=== PATIENT | female | born 1985 | race Caucasian/White ===

== ENCOUNTER 2017-07-21 12:53 | Inpatient (IN) | payer BC ==
[2017-07-21] MEDS ORDERED: Sodium Chloride 0.9% 10 ML Syringe FLUSH PRN (13:58)
[2017-07-21] MEDS ORDERED: Ampicillin 2 GM in Sodium Chloride 0.9% 100 ML IV ONE (14:05)
[2017-07-21] MEDS: Lactated Ringers 1,000 ML IV SCH ×2 (14:40→20:35)
--- NOTE | 2017-07-21 17:43 | PCM.LDHP ---
L&D History of Present Illness - General Date of Service: 07/21/17 Admit Problem/Dx: Patient Status Order with Admit Dx/Problem 07/21/17 13:59 Patient Status [ADT] Routine Admission Diagnosis/Problem Admission Diagnosis/Problem Labor established Source of Information: Patient History Limitations: Reports: No Limitations - History of Present Illness Introduction:: 32 year old at 40w3d had SROM clear fluid at 0230. No contractions yet. Declining pitocin. care with myself complicated by 1) prior s/p VBACx1 desires TOLAC 2) GBS positive - Related Data Allergies/Adverse Reactions: Allergies Allergy/AdvReac Type Severity Reaction Status Date / Time No Known Allergies Allergy Verified 07/11/14 19:23 Past Medical History - Past Health History Medical/Surgical History: Denies Medical/Surgical History Social & Family History - Tobacco Use Smoking Status *Q: Never Smoker Second Hand Smoke Exposure: No - Caffeine Use Caffeine Use: Reports: Coffee - Recreational Drug Use Recreational Drug Use: No H&P Review of Systems - Review of Systems: Review Of Systems: See Below General: Reports: No Symptoms HEENT: Reports: No Symptoms Pulmonary: Reports: No Symptoms Cardiovascular: Reports: No Symptoms Gastrointestinal: Reports: No Symptoms Genitourinary: Reports: No Symptoms Musculoskeletal: Reports: No Symptoms Skin: Reports: No Symptoms Psychiatric: Reports: No Symptoms Neurological: Reports: No Symptoms Hematologic/Lymphatic: Reports: No Symptoms Immunologic: Reports: No Symptoms L&D Exam - Exam Exam: See Below - Vital Signs Vital Signs: Last Vital Signs Temp 36.4 C 07/21/17 13:59 Pulse 81 07/21/17 13:59 Resp 18 07/21/17 13:59 BP 118/72 07/21/17 13:59 Pulse Ox 95 07/21/17 13:59 Weight: 198 kg - OB Specific Contraction Intensity: Moderate Movement: Active Heart Rate (FHR) Variability: Moderate (6-25 bmp) Presentation: Vertex - Roberts Score Roberts Score Cervix Position: Midposition Roberts Score Consistency: Medium Roberts Score Effacement: 51-70% Roberts Score Dilation: 1-2 cm Roberts Score 's Station: -2 Roberts Score Total: 6 - Exam General: Alert, Oriented HEENT: PERRLA, Conjunctiva Clear, EACs Clear, EOMI, Hearing Intact, Mucosa Moist & [place], Nares Patent, Normal Nasal Septum, Posterior Pharynx Clear, TMs Clear Neck: Supple, Trachea Midline Lungs: Clear to Auscultation, Normal Respiratory Effort Cardiovascular: Regular Rate, Regular Rhythm GI/Abdominal Exam: Normal Bowel Sounds, Soft, Non-Tender, No Organomegaly, No Distention, No Abnormal Bruit, No Mass, Pelvis Stable Back Exam: Normal Inspection, Full Range of Motion Extremities: Normal Inspection, Normal Range of Motion, Non-Tender, No Pedal Edema, Normal Capillary Refill Skin: Warm, Dry, Intact Neurological: Cranial Nerves Intact, Reflexes Equal Bilateral Psychiatric: Alert, Normal Affect, Normal Mood - Patient Data Lab Results Last 24 hrs: Laboratory Results - last 24 hr 07/21/17 07/21/17 Range/Units 14:21 14:21 WBC 8.21 (3.98-10.04) K/mm3 RBC 4.02 (3.98-5.22) M/mm3 Hgb 12.5 (11.2-15.7) gm/L Hct 36.2 (34.1-44.9) % MCV 90.0 (79.4-94.8) fl MCH 31.1 (25.6-32.2) pg MCHC 34.5 (32.2-35.5) g/dl RDW Std Deviation 42.5 (36.4-46.3) fL Plt Count 198 (182-369) K/mm3 MPV 9.8 (9.4-12.3) fl Neut % (Auto) 71.2 H (34.0-71.1) % Lymph % (Auto) 21.7 (19.3-51.7) % [place] % (Auto) 6.3 (4.7-12.5) % Eos % (Auto) 0.4 L (0.7-5.8) Baso % (Auto) 0.2 (0.1-1.2) % Neut # (Auto) 5.84 (1.56-6.13) K/mm3 Lymph # (Auto) 1.78 (1.18-3.74) K/mm3 [place] # (Auto) 0.52 H (0.24-0.36) K/mm3 Eos # (Auto) 0.03 L (0.04-0.36) K/mm3 Baso # (Auto) 0.02 (0.01-0.08) K/mm3 Blood Type B POSITIVE Gel Antibody Screen Negative Result Diagrams: 07/21/17 14:21 Problem List Initiated/Reviewed/Updated: Yes Orders Last 24hrs: Active Orders 24 hr Category Date Time Status Patient Status [ADT] Routine ADT 07/21/17 13:59 Active Activity as Tolerated [RC] PFP Care 07/21/17 13:59 Active Communication Order [RC] ASDIRECTED Care 07/21/17 13:59 Active Heart Tones [RC] ASDIRECTED Care 07/21/17 14:00 Active Notify Provider [RC] PFP Care 07/21/17 13:59 Active Notify Provider [RC] PRN Care 07/21/17 13:59 Active Peripheral IV Care [RC] . DIRECTED Care 07/21/17 14:00 Active Vital Signs [RC] PER UNIT ROUTINE Care 07/21/17 13:59 Active Regular Diet [DIET] Diet 07/21/17 Dinner Active Ampicillin 1 gm Med 07/21/17 18:30 Active Sodium Chloride 0.9% [Normal Saline] 100 ml IV Q4H Lactated Ringers [Ringers, Lactated] 1,000 ml Med 07/21/17 14:00 Active IV ASDIRECTED Sodium Chloride 0.9% [Saline Flush] Med 07/21/17 13:58 Active 10 ml FLUSH ASDIRECTED PRN Electronic Heart Tones Ext w TOCO [WOMSER] Oth 07/21/17 13:59 Ordered Routine Electronic Heart Tones Internal [WOMSER] Per Unit Oth 07/21/17 13:59 Ordered Routine Peripheral IV Insertion Adult [OM.PC] Routine Oth 07/21/17 13:59 Ordered Resuscitation Status Routine Resus Stat 07/21/17 13:58 Ordered Medication Orders Lactated Ringer's (Ringers, Lactated) 1,000 mls @ 100 mls/hr IV ASDIRECTED MARY Last Admin: 07/21/17 14:40 Dose: 100 mls/hr Ampicillin Sodium 1 gm/ Sodium (Chloride) 100 mls @ 200 mls/hr IV Q4H MARY Sodium Chloride (Saline Flush) 10 ml FLUSH ASDIRECTED PRN PRN Reason: Keep Vein Open Assessment/Plan Comment:: 32 year old here with PROM at 40w3. Refuses pitocin. Extensive counselling regarding risk of chorioamnionitis. Patient without contractions or cervical change. Discussed general risk of TOLAC and 1/100 risk of rupture and risk of chorioamniotis.
[2017-07-21] MEDS: Ampicillin 1 GM in Sodium Chloride 0.9% 100 ML IV SCH (18:23)
[2017-07-21] MEDS ORDERED: Acetaminophen 325 MG Tab PO PRN ×2 (20:07→23:00)
[2017-07-21] MEDS ORDERED: HYDROmorphone 0.5 MG/0.5 ML Syringe IVPUSH ONE (21:11)
[2017-07-21] MEDS ORDERED: Lidocaine 1% 50 ML MDV ONE (22:01)
--- NOTE | 2017-07-21 22:58 | PCM.DEL ---
L & D Note - General Info Date of Service: 07/21/17 Mother's Due Date: 07/18/17 - Delivery Note Labor: Spontaneous Delivery Outcome: Livebirth Infant Delivery Method: Spontaneous Vaginal Delivery-Single Presentation: Left Occiput Anterior (ALVINO) Nuchal Cord: None Anesthesia Type: Local Local Anesthetic Volume: Other (10 cc) Amniotic Fluid Description: Clear Episiotomy Type: None Laceration: 2nd Degree, Perineal (Midline) Suture type: Vicryl Suture size: 3-0 Placenta: Intact, Spontaneous Cord: 3 Vessels Estimated Blood Loss: 300 Resuscitation Needed: No : Bulb Syringe Provider: Richard Cristina Score 1 min: 8 Score 5 min: 9 Second Stage Interventions: Reports: Pushing, Knee Chest Position Delivery Comments (Free Text/Narrative):: Stage I: Marnie Dubon was admitted for spontaneous rupture of membranes in the setting of history of section positive for GBS and desires trial of labor after . On admission her cervix was dilated to 2 cm. She was GBS positive and was started on ampicillin for prophylaxis. She had premature rupture membranes at term with minimal contractions that occurred while she was at home at approximately 2:15 AM on 07/21/2017. She was advised to have augmentation of labor with Pitocin but patient declined. She was counseled on the risks and benefits of augmentation and she continued to decline. She performed nipple stimulation for augmentation of her labor. At approximately 7: 30 PM she reported that she was having increased amounts of contractions and increased contraction pain. She progressed to complete and pushing over the course of approximately one hour. Stage II: On 07/21/2017 she had a normal vaginal delivery after of a live female at 2139. Apgars of 8 & 9. Weight of 3260 g (7 lbs 3 oz). Length of 21 inches. There was no nuchal cord. was delivered in ALVINO position. The cord was doubly clamped and cut by father of baby. Infant was placed on mother's abdomen. Stage III: She had a spontaneous delivery of an intact placenta in Susan presentation. Three vessel cord. She was given pitocin and fundal massage. She had a midline second-degree laceration laceration that was repaired with 3-0 Vicryl. Mom and baby were stable to recovery. EBL of 300 mL. Remy Cooper MD 11:05 PM 07/21/2017 - Patient Data Vitals - Most Recent: Last Vital Signs Temp 36.4 C 07/21/17 13:59 Pulse 81 07/21/17 13:59 Resp 18 07/21/17 13:59 BP 118/72 07/21/17 13:59 Pulse Ox 95 07/21/17 13:59 Weight - Most Recent: 198 kg I&O - Last 24 Hours: Intake & Output 07/21/17 07/21/17 07/21/17 06:59 14:59 22:59 Intake Total 120 Balance 120 Lab Results Last 24 Hours: Laboratory Results - last 24 hr 07/21/17 07/21/17 Range/Units 14:21 14:21 WBC 8.21 (3.98-10.04) K/mm3 RBC 4.02 (3.98-5.22) M/mm3 Hgb 12.5 (11.2-15.7) gm/L Hct 36.2 (34.1-44.9) % MCV 90.0 (79.4-94.8) fl MCH 31.1 (25.6-32.2) pg MCHC 34.5 (32.2-35.5) g/dl RDW Std Deviation 42.5 (36.4-46.3) fL Plt Count 198 (182-369) K/mm3 MPV 9.8 (9.4-12.3) fl Neut % (Auto) 71.2 H (34.0-71.1) % Lymph % (Auto) 21.7 (19.3-51.7) % [place] % (Auto) 6.3 (4.7-12.5) % Eos % (Auto) 0.4 L (0.7-5.8) Baso % (Auto) 0.2 (0.1-1.2) % Neut # (Auto) 5.84 (1.56-6.13) K/mm3 Lymph # (Auto) 1.78 (1.18-3.74) K/mm3 [place] # (Auto) 0.52 H (0.24-0.36) K/mm3 Eos # (Auto) 0.03 L (0.04-0.36) K/mm3 Baso # (Auto) 0.02 (0.01-0.08) K/mm3 Blood Type B POSITIVE Gel Antibody Screen Negative Med Orders - Current: Current Medications Acetaminophen (Tylenol) 650 mg PO Q6H PRN PRN Reason: Pain (moderate 4-6) Last Admin: 07/21/17 20:21 Dose: 650 mg Lactated Ringer's (Ringers, Lactated) 1,000 mls @ 100 mls/hr IV ASDIRECTED MARY Last Admin: 07/21/17 20:35 Dose: 100 mls/hr Ampicillin Sodium 1 gm/ Sodium (Chloride) 100 mls @ 200 mls/hr IV Q4H [facility] Last Admin: 07/21/17 18:23 Dose: 200 mls/hr Sodium Chloride (Saline Flush) 10 ml FLUSH ASDIRECTED PRN PRN Reason: Keep Vein Open Discontinued Medications Hydromorphone HCl (Dilaudid) 0.5 mg IVPUSH ONETIME ONE Stop: 07/21/17 21:12 Last Admin: 07/21/17 21:15 Dose: 0.5 mg Ampicillin Sodium 2 gm/ Sodium (Chloride) 100 mls @ 200 mls/hr IV ONETIME ONE Stop: 07/21/17 14:34 Last Admin: 07/21/17 14:40 Dose: 200 mls/hr Lidocaine HCl (Xylocaine 1%) Confirm Administered Dose 50 ml .ROUTE .STK-MED ONE Stop: 07/21/17 22:02 - Problem List & Annotations (1) 40 weeks gestation of SNOMED Code(s): 26038535 Code(s): Z3A.40 - 40 WEEKS GESTATION OF Status: Acute Current Visit: Yes (2) GBS (group B Streptococcus carrier), +RV culture, currently SNOMED Code(s): 54251694 Code(s): O99.820 - STREPTOCOCCUS B CARRIER STATE COMPLICATING Status: Acute Current Visit: Yes (3) History of section SNOMED Code(s): 960602428 Code(s): Z98.891 - HISTORY OF UTERINE SCAR FROM PREVIOUS SURGERY Status: Acute Current Visit: Yes (4) Vaginal delivery following previous section, delivered SNOMED Code(s): 396932394 Code(s): O34.219 - MATERNAL CARE FOR UNSP TYPE SCAR FROM PREVIOUS DEL Status: Acute Current Visit: Yes (5) Second degree laceration of perineum, delivered, current hospitalization SNOMED Code(s): 121108185 Code(s): O70.1 - SECOND DEGREE PERINEAL LACERATION DURING DELIVERY Status: Acute Current Visit: Yes - Problem List Review Problem List Initiated/Reviewed/Updated: Yes - My Orders Last 24 Hours: My Active Orders 07/21/17 20:07 Acetaminophen [Tylenol] 650 mg PO Q6H PRN 07/21/17 22:52 Patient Status Manage Transfer [TRANSFER] Routine - Assessment Assessment:: Patient doing well after delivery. Assist with breast-feeding as needed. Patient may have a regular diet. - Plan Plan:: 32 year old here with PROM at 40w3. Refuses pitocin. Extensive counselling regarding risk of chorioamnionitis. Patient without contractions or cervical change. Discussed general risk of TOLAC and 1/100 risk of rupture and risk of chorioamniotis.
[2017-07-21] MEDS ORDERED: Magnesium Hydroxide 400 MG/5 ML Susp 30 ML Cup PO PRN (23:00)
[2017-07-21] MEDS ORDERED: Oxytocin/Lactated Ringers 10 UNIT/1,000 ML BAG IV SCH (23:00)
[2017-07-21] MEDS ORDERED: Simethicone 80 MG Tab.Chew PO PRN (23:00)
[2017-07-21] MEDS ORDERED: Docusate Sodium 100 MG Cap PO PRN (23:00)
[2017-07-21] MEDS ORDERED: Witch Hazel Medicated Pads 100/Jar TOP PRN (23:00)
[2017-07-21] MEDS ORDERED: Benzocaine/Menthol 20%-0.5% Spray 56 GM Canister TOP PRN (23:00)
[2017-07-21] MEDS ORDERED: Lactated Ringers 1,000 ML IV SCH (23:00)
[2017-07-21] MEDS ORDERED: Hydrocortisone Acetate 25 MG Supp RECTAL PRN (23:00)
[2017-07-21] MEDS ORDERED: Lanolin 100% Cream 7 GM Tube TOP PRN (23:00)
[2017-07-22] MEDS: Ibuprofen 600 MG Tab PO PRN ×4 (00:27→23:12)
[2017-07-22] MEDS: Prenatal Multivitamin with Calcium/Folic Acid/Iron Tab PO SCH (09:55)
--- NOTE | 2017-07-22 12:39 | PCM.SN ---
- Free Text/Narrative Note: Post Progress Note PPD # 1 Subjective: Doing well overall. Ambulating without difficulty. Lochia minimal. Voiding without difficulty. Tolerating regular diet. Pain controlled with oral medications. Breast feeding with minimal difficulty. Objective: Vitals: Last Vital Signs Temp 36.6 C 07/22/17 03:35 Pulse 63 07/22/17 03:35 Resp 14 07/22/17 03:35 BP 128/72 07/22/17 03:35 Pulse Ox 97 07/22/17 03:35 Physical Exam General: Alert and oriented, no acute distress Lungs: Clear to auscultation bilaterally Heart: Regular rate and rhythm Abdomen: Soft, minimal appropriate tenderness, non-distended, fundus midline, nontender, and below the umbilicus Extremities: No edema ASSESSMENT: 32-year-old female s/p vaginal delivery after PPD #1, complicated by history of with previous vaginal after , GBS positive, and prolonged first stage of labor PLAN: Doing well Breast feeding with minimal difficulty. Assist as needed Lochia minimal. Continue to monitor for appropriate lochia. Continue routine care Anticipate discharge home tomorrow Remy Cooper MD 12:40 PM 07/22/2017
[2017-07-22] MEDS: Ampicillin 1 GM in Sodium Chloride 0.9% 100 ML IV SCH (13:45)
[2017-07-23 05:38] VITALS: BP 117/65
--- NOTE | 2017-07-23 10:47 | PCM.SN ---
- Free Text/Narrative Note: Post Progress Note PPD # 2 Subjective: Doing well overall. Ambulating without difficulty. Lochia minimal. Voiding without difficulty. Tolerating regular diet. Pain controlled with oral medications. Breast feeding with minimal difficulty. Objective: Vitals: Last Vital Signs Temp 36.4 C 07/23/17 04:59 Pulse 63 07/23/17 04:59 Resp 13 07/23/17 04:59 BP 117/65 07/23/17 04:59 Pulse Ox 97 07/23/17 04:59 Physical Exam General: Alert and oriented, no acute distress Lungs: Clear to auscultation bilaterally Heart: Regular rate and rhythm Abdomen: Soft, minimal appropriate tenderness, non-distended, fundus midline, nontender, and below the umbilicus Extremities: No edema ASSESSMENT: 32-year-old female s/p vaginal delivery after PPD #2, complicated by history of with previous vaginal after , GBS positive, and prolonged first stage of labor PLAN: Doing well Breast feeding with minimal difficulty. Assist as needed Lochia minimal. Continue to monitor for appropriate lochia. Continue routine care Anticipate discharge home today Remy Cooper MD 11:15 AM 07/23/2017
--- NOTE | 2017-07-23 10:47 | PCM.DCSUM1 ---
Discharge Summary - Hospital Course Free Text/Narrative:: Stage I: Marnie Dubon was admitted for spontaneous rupture of membranes in the setting of history of section positive for GBS and desires trial of labor after . On admission her cervix was dilated to 2 cm. She was GBS positive and was started on ampicillin for prophylaxis. She had premature rupture membranes at term with minimal contractions that occurred while she was at home at approximately 2:15 AM on 07/21/2017. She was advised to have augmentation of labor with Pitocin but patient declined. She was counseled on the risks and benefits of augmentation and she continued to decline. She performed nipple stimulation for augmentation of her labor. At approximately 7: 30 PM she reported that she was having increased amounts of contractions and increased contraction pain. She progressed to complete and pushing over the course of approximately one hour. Stage II: On 07/21/2017 she had a normal vaginal delivery after of a live female infant at 2139. Apgars of 8 & 9. Weight of 3260 g (7 lbs 3 oz). Length of 21 inches. There was no nuchal cord. was delivered in ALVINO position. The cord was doubly clamped and cut by father of baby. was placed on mother's abdomen. Stage III: She had a spontaneous delivery of an intact placenta in Susan presentation. Three vessel cord. She was given pitocin and fundal massage. She had a midline second-degree laceration laceration that was repaired with 3-0 Vicryl. Mom and baby were stable to recovery. EBL of 300 mL. HPI Initial Comments: Stage I: Marnie Dubon was admitted for spontaneous rupture of membranes in the setting of history of section positive for GBS and desires trial of labor after . On admission her cervix was dilated to 2 cm. She was GBS positive and was started on ampicillin for prophylaxis. She had premature rupture membranes at term with minimal contractions that occurred while she was at home at approximately 2:15 AM on 07/21/2017. She was advised to have augmentation of labor with Pitocin but patient declined. She was counseled on the risks and benefits of augmentation and she continued to decline. She performed nipple stimulation for augmentation of her labor. At approximately 7: 30 PM she reported that she was having increased amounts of contractions and increased contraction pain. She progressed to complete and pushing over the course of approximately one hour. Stage II: On 07/21/2017 she had a normal vaginal delivery after of a live female infant at 2139. Apgars of 8 & 9. Weight of 3260 g (7 lbs 3 oz). Length of 21 inches. There was no nuchal cord. Infant was delivered in ALVINO position. The cord was doubly clamped and cut by father of baby. was placed on mother's abdomen. Stage III: She had a spontaneous delivery of an intact placenta in Susan presentation. Three vessel cord. She was given pitocin and fundal massage. She had a midline second-degree laceration laceration that was repaired with 3-0 Vicryl. Mom and baby were stable to recovery. EBL of 300 mL. Brief History: Stage I: Marnie Dubon was admitted for spontaneous rupture of membranes in the setting of history of section positive for GBS and desires trial of labor after . On admission her cervix was dilated to 2 cm. She was GBS positive and was started on ampicillin for prophylaxis. She had premature rupture membranes at term with minimal contractions that occurred while she was at home at approximately 2:15 AM on 07/21/2017. She was advised to have augmentation of labor with Pitocin but patient declined. She was counseled on the risks and benefits of augmentation and she continued to decline. She performed nipple stimulation for augmentation of her labor. At approximately 7:30 PM she reported that she was having increased amounts of contractions and increased contraction pain. She progressed to complete and pushing over the course of approximately one hour. Stage II: On 07/21/2017 she had a normal vaginal delivery after of a live female at 2139. Apgars of 8 & 9. Weight of 3260 g (7 lbs 3 oz). Length of 21 inches. There was no nuchal cord. Infant was delivered in ALVINO position. The cord was doubly clamped and cut by father of baby. Infant was placed on mother's abdomen. Stage III: She had a spontaneous delivery of an intact placenta in Susan presentation. Three vessel cord. She was given pitocin and fundal massage. She had a midline second-degree laceration laceration that was repaired with 3-0 Vicryl. Mom and baby were stable to recovery. EBL of 300 mL. - Discharge Data Discharge Date: 07/23/17 Discharge Disposition: Home, Self-Care 01 Condition: Good - Discharge Diagnosis/Problem(s) (1) 40 weeks gestation of SNOMED Code(s): 81167306 ICD Code: Z3A.40 - 40 WEEKS GESTATION OF Status: Acute Current Visit: Yes (2) GBS (group B Streptococcus carrier), +RV culture, currently SNOMED Code(s): 43910650 ICD Code: O99.820 - STREPTOCOCCUS B CARRIER STATE COMPLICATING Status: Acute Current Visit: Yes (3) History of section SNOMED Code(s): 304827060 ICD Code: Z98.891 - HISTORY OF UTERINE SCAR FROM PREVIOUS SURGERY Status: Acute Current Visit: Yes (4) Vaginal delivery following previous section, delivered SNOMED Code(s): 301050302 ICD Code: O34.219 - MATERNAL CARE FOR UNSP TYPE SCAR FROM PREVIOUS DEL Status: Acute Current Visit: Yes (5) Second degree laceration of perineum, delivered, current hospitalization SNOMED Code(s): 627726330 ICD Code: O70.1 - SECOND DEGREE PERINEAL LACERATION DURING DELIVERY Status : Acute Current Visit: Yes (6) Hx successful (vaginal after ), currently SNOMED Code(s): 970773129, 275658029 ICD Code: O34.219 - MATERNAL CARE FOR UNSP TYPE SCAR FROM PREVIOUS DEL Status: Acute Current Visit: Yes - Patient Summary/Data Complications: None Consults: None Hospital Course: Stage I: Marnie Dubon was admitted for spontaneous rupture of membranes in the setting of history of section positive for GBS and desires trial of labor after . On admission her cervix was dilated to 2 cm. She was GBS positive and was started on ampicillin for prophylaxis. She had premature rupture membranes at term with minimal contractions that occurred while she was at home at approximately 2:15 AM on 07/21/2017. She was advised to have augmentation of labor with Pitocin but patient declined. She was counseled on the risks and benefits of augmentation and she continued to decline. She performed nipple stimulation for augmentation of her labor. At approximately 7: 30 PM she reported that she was having increased amounts of contractions and increased contraction pain. She progressed to complete and pushing over the course of approximately one hour. Stage II: On 07/21/2017 she had a normal vaginal delivery after of a live female at 2139. Apgars of 8 & 9. Weight of 3260 g (7 lbs 3 oz). Length of 21 inches. There was no nuchal cord. Infant was delivered in ALVINO position. The cord was doubly clamped and cut by father of baby. Infant was placed on mother's abdomen. Stage III: She had a spontaneous delivery of an intact placenta in Susan presentation. Three vessel cord. She was given pitocin and fundal massage. She had a midline second-degree laceration laceration that was repaired with 3-0 Vicryl. Mom and baby were stable to recovery. EBL of 300 mL. Patient did well in her course. In the morning of day #1 she was meeting all milestones including having her pain controlled with oral medications and ambulating without difficulty. She was tolerating regular diet without any nausea or vomiting. She was voiding with minimal pain. Her lochia was minimal. Due to the time of her delivery in the late evening she was kept until day #2. The morning of day #2 she continued to be doing very well and was meeting all of her milestones. Her pain was improving and continue be controlled with oral medications. She had minimal perineal discomfort. She was voiding without difficulty and had minimal perineal pain. She was tolerating a regular diet without any nausea or vomiting. She is breast-feeding without difficulty. She had minimal lochia. She desired to be discharged home in the morning of day #2. She will follow up with Dr. Goldstein in 6 weeks or earlier as needed for her routine care. - Patient Instructions Diet: Regular Diet as Tolerated Activity: As Tolerated Activity, Other: Nothing in vagina for 6 weeks Driving: May Drive Today Showering/Bathing: May Shower, No Tub Bathing/Swimming Notify Provider of: Fever, Increased Pain, Swelling and Redness, Drainage, Nausea and/or Vomiting - Discharge Plan Home Medications: Home Meds Acetaminophen [Tylenol] 650 mg PO Q6H PRN tablet 07/23/17 [Rx] Benzocaine/Menthol [Dermoplast Pain Relief [place]] 1 spray TOP ASDIRECTED PRN canister 07/23/17 [Rx] Docusate Sodium [Colace] 100 mg PO BID PRN cap 07/23/17 [Rx] Hydrocortisone Acetate [Anucort-HC] 25 mg RECTAL BID PRN supp 07/23/17 [Rx] Ibuprofen [IJD: Ibuprofen] 600 mg PO Q6H PRN tablet 07/23/17 [Rx] Lanolin [Lansinoh HPA] 1 applic TOP ASDIRECTED PRN tube 07/23/17 [Rx] Vit with Ca/FA/Iron [ Plus Iron] 1 each PO DAILY tablet [Rx] Dilcia Vizcarra [Tucks] 1 pad TOP ASDIRECTED PRN pad 07/23/17 [Rx] Patient Handouts: Home Care Instructions for Mom, Vaginal Delivery, Care After , Care of a Perineal Tear, Care After Vaginal Delivery Referrals: Sandra Goldstein MD [Primary Care Provider] - (In 6 weeks or earlier as needed for routine care.) - Discharge Summary/Plan Comment DC Time >30 min.: No - Patient Data Vitals - Most Recent: Last Vital Signs Temp 36.4 C 07/23/17 04:59 Pulse 63 07/23/17 04:59 Resp 13 07/23/17 04:59 BP 117/65 07/23/17 04:59 Pulse Ox 97 07/23/17 04:59 Weight - Most Recent: 198 kg I&O - Last 24 hours: Intake & Output 07/22/17 07/23/17 07/23/17 22:59 06:59 14:59 Intake Total 540 420 Balance 540 420 Med Orders - Current: Current Medications Acetaminophen (Tylenol) 650 mg PO Q6H PRN PRN Reason: mild pain or fever Last Admin: 07/22/17 04:21 Dose: 650 mg Benzocaine/Menthol (Dermoplast Pain Relief [place]) 0 gm TOP ASDIRECTED PRN PRN Reason: Perineal Comfort Measure Docusate Sodium (Colace) 100 mg PO BID PRN PRN Reason: Constipation Last Admin: 07/22/17 23:13 Dose: 100 mg Emollient Ointment (Lansinoh Hpa) 0 gm TOP ASDIRECTED PRN PRN Reason: Sore Nipples Hydrocortisone Acetate (Anucort-Hc) 25 mg RECTAL BID PRN PRN Reason: Hemorrhoid pain Lactated Ringer's (Ringers, Lactated) 1,000 mls @ 125 mls/hr IV ASDIRECTED MARY Oxytocin/Lactated Ringer's (Pitocin In Lr 10 Units/1,000 Ml) 10 unit in 1,000 mls @ 100 mls/hr IV TITRATE MARY PRN Reason: Protocol Last Admin: 07/21/17 21:55 Dose: 500 mls/hr Ibuprofen (Motrin) 600 mg PO Q6H PRN PRN Reason: Mild pain or fever Last Admin: 07/22/17 23:12 Dose: 600 mg Magnesium Hydroxide (Milk Of Magnesia) 30 ml PO BEDTIME PRN PRN Reason: Constipation Prenat Multivit/[place]/Iron/Folic Ac ( Plus Iron) 1 each PO DAILY [facility], [facility] Last Admin: 07/22/17 09:55 Dose: 1 each Simethicone (Simethicone) 80 mg PO Q4H PRN PRN Reason: Gas Witch [place] (Tucks) 1 pad TOP ASDIRECTED PRN PRN Reason: Hemorrhoid pain Discontinued Medications Acetaminophen (Tylenol) 650 mg PO Q6H PRN PRN Reason: Pain (moderate 4-6) Last Admin: 07/21/17 20:21 Dose: 650 mg Hydromorphone HCl (Dilaudid) 0.5 mg IVPUSH ONETIME ONE Stop: 07/21/17 21:12 Last Admin: 07/21/17 21:15 Dose: 0.5 mg Lactated Ringer's (Ringers, Lactated) 1,000 mls @ 100 mls/hr IV ASDIRECTED [facility], [facility] Last Admin: 07/21/17 20:35 Dose: 100 mls/hr Ampicillin Sodium 2 gm/ Sodium (Chloride) 100 mls @ 200 mls/hr IV ONETIME ONE Stop: 07/21/17 14:34 Last Admin: 07/21/17 14:40 Dose: 200 mls/hr Ampicillin Sodium 1 gm/ Sodium (Chloride) 100 mls @ 200 mls/hr IV Q4H [facility] Last Admin: 07/22/17 13:45 Dose: Not Given Lidocaine HCl (Xylocaine 1%) Confirm Administered Dose 50 ml .ROUTE .STK-MED ONE Stop: 07/21/17 22:02 Last Admin: 07/22/17 13:45 Dose: Not Given Sodium Chloride (Saline Flush) 10 ml FLUSH ASDIRECTED PRN PRN Reason: Keep Vein Open *Q Meaningful Use (DIS) - VTE *Q VTE Criteria *Q: - Stroke *Q Stroke Criteria *Q: - AMI *Q AMI Criteria *Q:
[2017-07-23] MEDS: Ibuprofen 600 MG Tab PO PRN (10:57)
[2017-07-23] MEDS: Prenatal Multivitamin with Calcium/Folic Acid/Iron Tab PO SCH (10:57)
== END 2017-07-23 11:20 | disposition home or self-care (01) | DRG 560 ==
LOC: JD.OBCHECK 12:53 → JD.OB 12:53 → JD.OBCHECK 13:58 → JD.OB 13:59 → OBSVTOIN 21:39 → JD.OB 21:39
PROVIDERS: ADMIT Obstetrics & Gynecology; ATTEND Obstetrics & Gynecology
PROC: 10E0XZZ Delivery of Products of Conception, External Approach (ICD-10-PCS; principal; 2017-07-21)
PROC: 0KQM0ZZ Repair Perineum Muscle, Open Approach (ICD-10-PCS; 2017-07-21)
DX: O42.02 Full-term premature rupture of membranes, onset of labor within 24 hours of rupture (principal); Z3A.40 40 weeks gestation of pregnancy; Z37.0 Single live birth; O34.211 Maternal care for low transverse scar from previous cesarean delivery; N85.8 Other specified noninflammatory disorders of uterus; O99.824 Streptococcus B carrier state complicating childbirth; O70.1 Second degree perineal laceration during delivery
CPT/HCPCS: 36415; 59300; 59409; 85025; 86850; 86900; 86901; A9270-GY; J0290; J1170; J2590; J7030; J7120

== ENCOUNTER 2020-07-30 07:31 | Inpatient (IN) | payer BC ==
[2020-07-30] MEDS ORDERED: Nalbuphine 10 MG/ML Syringe IVPUSH PRN (07:46)
[2020-07-30] MEDS ORDERED: Sodium Chloride 0.9% 10 ML Syringe FLUSH PRN (07:46)
[2020-07-30] MEDS ORDERED: Ondansetron 4 MG/2 ML SDV IVPUSH PRN ×2 (07:46→11:32)
[2020-07-30] MEDS ORDERED: Ampicillin 2 GM in Sodium Chloride 0.9% 100 ML IV ONE (08:00)
[2020-07-30] MEDS ORDERED: Oxytocin/Lactated Ringers 10 UNIT/1,000 ML BAG IV SCH ×2 (08:00)
[2020-07-30] MEDS: Lactated Ringers 1,000 ML IV SCH ×3 (08:48→15:36)
[2020-07-30] MEDS ORDERED: fentaNYL 100 MCG/2 ML SDV EPIDUR PRN (11:32)
[2020-07-30] MEDS ORDERED: ePHEDrine 50 MG/ML SDV IVPUSH PRN (11:32)
[2020-07-30] MEDS ORDERED: diphenhydrAMINE 50 MG/ML SDV IVPUSH PRN (11:32)
--- NOTE | 2020-07-30 11:41 | PCM.PREANE ---
Preanesthetic Assessment - Procedure Proposed Procedure: Epidural//Potential : - Anesthesia/Transfusion/Family Hx Anesthesia History: Prior Anesthesia Without Reaction Family History of Anesthesia Reaction: No Transfusion History: No Prior Transfusion(s) Intubation History: Unknown - Review of Systems General: No Symptoms Pulmonary: No Symptoms Cardiovascular: No Symptoms Gastrointestinal: No Symptoms Neurological: No Symptoms Other: Reports: Easy Bruising, Sinus Problem - Physical Assessment NPO Status Date: 07/30/20 NPO Status Time: 11:30 Vital Signs: Last Vital Signs Temp 36.5 C 07/30/20 08:06 Pulse 54 L 07/30/20 08:06 Resp 18 07/30/20 08:06 BP 132/78 07/30/20 08:06 Pulse Ox 100 07/30/20 08:06 Height: 1.78 m Weight: 92.533 kg ASA Class: 2 Mental Status: Alert & Oriented x3 Airway Class: Mallampati = 2 Dentition: Reports: Normal Dentition, Caries Thyro-Mental Finger Breadths: 3 Mouth Opening Finger Breadths: 3 ROM/Head Extension: Full Lungs: Clear to Auscultation, Normal Respiratory Effort Cardiovascular: Regular Rate, Regular Rhythm, No Murmurs - Lab Values: Laboratory Last Values WBC 4.95 K/mm3 (3.98-10.04) 07/30/20 08:30 RBC 4.24 M/mm3 (3.98-5.22) 07/30/20 08:30 Hgb 12.7 gm/dl (11.2-15.7) 07/30/20 08:30 Hct 38.0 % (34.1-44.9) 07/30/20 08:30 MCV 89.6 fl (79.4-94.8) 07/30/20 08:30 MCH 30.0 pg (25.6-32.2) 07/30/20 08:30 MCHC 33.4 g/dl (32.2-35.5) 07/30/20 08:30 RDW Std Deviation 43.9 fL (36.4-46.3) 07/30/20 08:30 Plt Count 201 K/mm3 (182-369) 07/30/20 08:30 MPV 10.2 fl (9.4-12.3) 07/30/20 08:30 Neut % (Auto) 68.1 % (34.0-71.1) 07/30/20 08:30 Lymph % (Auto) 23.8 % (19.3-51.7) 07/30/20 08:30 [place] % (Auto) 6.9 % (4.7-12.5) 07/30/20 08:30 Eos % (Auto) 0.6 (0.7-5.8) L 07/30/20 08:30 Baso % (Auto) 0.2 % (0.1-1.2) 07/30/20 08:30 Neut # (Auto) 3.37 K/mm3 (1.56-6.13) 07/30/20 08:30 Lymph # (Auto) 1.18 K/mm3 (1.18-3.74) 07/30/20 08:30 [place] # (Auto) 0.34 K/mm3 (0.24-0.36) 07/30/20 08:30 Eos # (Auto) 0.03 K/mm3 (0.04-0.36) L 07/30/20 08:30 Baso # (Auto) 0.01 K/mm3 (0.01-0.08) 07/30/20 08:30 SARS-CoV-2 RNA ([place]) Negative (NEGATIVE) 07/30/20 07:49 Blood Type B POSITIVE 07/30/20 08:30 Gel Antibody Screen Negative 07/30/20 08:30 Above labs reviewed and noted and within acceptable ranges to proceed with epidural if desired. - Allergies Allergies/Adverse Reactions: Allergies Allergy/AdvReac Type Severity Reaction Status Date / Time No Known Allergies Allergy Verified 07/11/14 19:23 - Anesthesia Plan Pre-Op Medication Ordered: None - Acknowledgements Anesthesia Type Planned: Spinal, Epidural Pt an Appropriate Candidate for the Planned Anesthesia: Yes Alternatives and Risks of Anesthesia Discussed w Pt/Guardian: Yes Pt/Guardian Understands and Agrees with Anesthesia Plan: Yes PreAnesthesia Questionnaire - Past Health History Medical/Surgical History: Denies Medical/Surgical History [employer]LECT[employer] MECH[employer]IC History: Reports: - Past Surgical History HEENT Surgical History: Reports: Tonsillectomy - SUBSTANCE USE Tobacco Use Status *Q: Never Tobacco User Second Hand Smoke Exposure: No Recreational Drug Use History: No - HOME MEDS Home Medications: Home Meds Acetaminophen [Tylenol] 650 mg PO Q6H PRN tablet 07/23/17 [Rx] Benzocaine/Menthol [Dermoplast Pain Relief [place]] 1 spray TOP ASDIRECTED PRN canister 07/23/17 [Rx] Docusate Sodium [Colace] 100 mg PO BID PRN cap 07/23/17 [Rx] Hydrocortisone Acetate [Anucort-HC] 25 mg RECTAL BID PRN supp 07/23/17 [Rx] Ibuprofen [IJD: Ibuprofen] 600 mg PO Q6H PRN tablet 07/23/17 [Rx] Lanolin [Lansinoh HPA] 1 applic TOP ASDIRECTED PRN tube 07/23/17 [Rx] Vit with Ca/FA/Iron [ Plus Iron] 1 each PO DAILY tablet 07/23/17 [Rx] zina Cee [Tucks] 1 pad TOP ASDIRECTED PRN pad 07/23/17 [Rx] - CURRENT (IN HOUSE) MEDS Current Meds: Current Medications Diphenhydramine HCl (Benadryl) 25 mg IVPUSH Q6H PRN PRN Reason: pruritis Ephedrine Sulfate (Ephedrine Sulfate) 5 mg IVPUSH ASDIRECTED PRN PRN Reason: Hypotension Fentanyl (Sublimaze) 100 mcg EPIDUR Q3H PRN PRN Reason: Pain Fentanyl/Bupivacaine HCl (Fentanyl/Bupivacaine/Ns 2 Mcg-0.125% 100 Ml) 100 ml EPIDUR ASDIRECTED MARY Ampicillin Sodium 1 gm/ Sodium (Chloride) 100 mls @ 200 mls/hr IV Q4H MARY Oxytocin/Lactated Ringer's (Pitocin In Lr 10 Units/1,000 Ml) 10 unit in 1,000 mls @ 100 mls/hr IV .CONTINUOUS MARY Oxytocin/Lactated Ringer's (Pitocin In Lr 10 Units/1,000 Ml) 10 unit in 1,000 mls @ 12 mls/hr IV TITRATE MARY; Protocol Lactated Ringer's (Ringers, Lactated) 1,000 mls @ 100 mls/hr IV ASDIRECTED MARY Last Admin: 07/30/20 08:48 Dose: 100 mls/hr Documented by: Miscellaneous Medication (Phenylephrine 1 Mg/10 Ml-Ns) 0 mg IVPUSH ONETIME ONE Stop: 07/30/20 11:33 Nalbuphine HCl (Nubain) 10 mg IVPUSH Q2H PRN PRN Reason: Pain Ondansetron HCl (Zofran) 4 mg IVPUSH Q4H PRN PRN Reason: Nausea/Vomiting Ondansetron HCl (Zofran) 4 mg IVPUSH ONETIME PRN PRN Reason: Nausea/Vomiting Sodium Chloride (Saline Flush) 10 ml FLUSH ASDIRECTED PRN PRN Reason: Keep Vein Open Discontinued Medications Ampicillin Sodium 2 gm/ Sodium (Chloride) 100 mls @ 200 mls/hr IV ONETIME ONE Stop: 07/30/20 08:29 Last Admin: 07/30/20 08:48 Dose: 200 mls/hr Documented by:
[2020-07-30] MEDS ORDERED: Bupivacaine/fentaNYL/NS 100 ML Bag EPIDUR SCH (11:45)
[2020-07-30] MEDS: Ampicillin 1 GM in Sodium Chloride 0.9% 100 ML IV SCH ×2 (12:25→16:29)
--- NOTE | 2020-07-30 18:31 | PCM.PNLD ---
Labor Progress Note - VS & Meds Vital Signs: Last Vital Signs Temp 36.5 C 07/30/20 08:06 Pulse 54 L 07/30/20 08:06 Resp 18 07/30/20 08:06 BP 132/78 07/30/20 08:06 Pulse Ox 100 07/30/20 08:06 Active Medications: Current Medications Diphenhydramine HCl (Benadryl) 25 mg IVPUSH Q6H PRN PRN Reason: pruritis Ephedrine Sulfate (Ephedrine Sulfate) 5 mg IVPUSH ASDIRECTED PRN PRN Reason: Hypotension Fentanyl (Sublimaze) 100 mcg EPIDUR Q3H PRN PRN Reason: Pain Fentanyl/Bupivacaine HCl (Fentanyl/Bupivacaine/Ns 2 Mcg-0.125% 100 Ml) 100 ml EPIDUR ASDIRECTED MARY Ampicillin Sodium 1 gm/ Sodium (Chloride) 100 mls @ 200 mls/hr IV Q4H MARY Last Admin: 07/30/20 16:29 Dose: 200 mls/hr Documented by: Oxytocin/Lactated Ringer's (Pitocin In Lr 10 Units/1,000 Ml) 10 unit in 1,000 mls @ 100 mls/hr IV .CONTINUOUS MARY Oxytocin/Lactated Ringer's (Pitocin In Lr 10 Units/1,000 Ml) 10 unit in 1,000 mls @ 12 mls/hr IV TITRATE MARY; Protocol Last Titration: 07/30/20 13:45 Dose: 2 munits/min, 12 mls/hr Documented by: Lactated Ringer's (Ringers, Lactated) 1,000 mls @ 100 mls/hr IV ASDIRECTED MARY Last Admin: 07/30/20 15:36 Dose: 100 mls/hr Documented by: Nalbuphine HCl (Nubain) 10 mg IVPUSH Q2H PRN PRN Reason: Pain Last Admin: 07/30/20 17:16 Dose: 10 mg Documented by: Ondansetron HCl (Zofran) 4 mg IVPUSH Q4H PRN PRN Reason: Nausea/Vomiting Ondansetron HCl (Zofran) 4 mg IVPUSH ONETIME PRN PRN Reason: Nausea/Vomiting Sodium Chloride (Saline Flush) 10 ml FLUSH ASDIRECTED PRN PRN Reason: Keep Vein Open Discontinued Medications Ampicillin Sodium 2 gm/ Sodium (Chloride) 100 mls @ 200 mls/hr IV ONETIME ONE Stop: 07/30/20 08:29 Last Admin: 07/30/20 08:48 Dose: 200 mls/hr Documented by: Miscellaneous Medication (Phenylephrine 1 Mg/10 Ml-Ns) 0 mg IVPUSH ONETIME ONE Stop: 07/30/20 11:33 - Uterine Contractions Contraction Intensity: Moderate to Strong - Monitoring Heart Rate (FHR) Variability: Absent; Amplitude Undetectable Accelerations: Present, 15x15 Decelerations: None Strip Review: Category I - Vaginal Exam Dilation (cm): 8 Effacement (Percent): 80 Station: -2 Cervical Position: Midposition - Labor Progress (Free Text) Labor Progress: Called for deep variable decelerations. Progressing adequately. Pitocin off. Continue to monitor. Discussed possible need for but at this point with rapid progress can continue to labor
[2020-07-30] MEDS ORDERED: Lidocaine 1% 50 ML MDV ONE (18:47)
--- NOTE | 2020-07-30 19:08 | PCM.SN.2 ---
- Free Text/Narrative Note: Stage I - Patient presented in active labor although was scheduled for induction. Ampicillin x 3 doses. Progressed to complete with pitocin augmentation and overall reassuring heart tones. Stage II - of viable male, weight 3850g, 8/9 apgars at 1843. Head delivered in controlled manner over intact perineum. Body and shoulders atraumatically. Cord clamped and cut. To warmer. Stage III - of intact placenta. 3vc. Second degree laceration repaired with 3-0 vicryl. EBL 400.
[2020-07-30] MEDS ORDERED: Hydrocortisone Acetate 25 MG Supp RECTAL PRN (19:37)
[2020-07-30] MEDS ORDERED: Benzocaine/Menthol 20%-0.5% Spray 56 GM Canister TOP PRN (19:37)
[2020-07-30] MEDS ORDERED: Witch Hazel Medicated Pads 40/Jar TOP PRN (19:37)
[2020-07-31] MEDS: Ibuprofen 600 MG Tab PO PRN ×2 (03:22→14:41)
--- NOTE | 2020-07-31 06:37 | PCM.LDHP ---
L&D History of Present Illness - General Date of Service: 07/30/20 Admit Problem/Dx: Admission Diagnosis/Problem Admission Diagnosis/Problem - History of Present Illness Introduction:: 35 year old at 41w presented for induction of labor. SROM prior. Pain Score: 3 Present Illness Comments:: Prenatals reviewed. 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: - Past Surgical History HEENT Surgical History: Reports: Tonsillectomy Social & Family History - Family History Family Medical History: Noncontributory - Tobacco Use Tobacco Use Status *Q: Never Tobacco User Second Hand Smoke Exposure: No - Caffeine Use Caffeine Use: Reports: Coffee - Recreational Drug Use Recreational Drug Use: No H&P Review of Systems - Review of Systems: Review Of Systems: See Below General: Reports: No Symptoms HEENT: Reports: No Symptoms Pulmonary: Reports: No Symptoms Cardiovascular: Reports: No Symptoms Gastrointestinal: Reports: No Symptoms Genitourinary: Reports: No Symptoms Musculoskeletal: Reports: No Symptoms Skin: Reports: No Symptoms Psychiatric: Reports: No Symptoms Neurological: Reports: No Symptoms Hematologic/Lymphatic: Reports: No Symptoms Immunologic: Reports: No Symptoms L&D Exam - Exam Exam: See Below - Vital Signs Vital Signs: Last Vital Signs Temp 36.6 C 07/31/20 03:25 Pulse 70 07/31/20 03:25 Resp 12 07/31/20 03:25 BP 134/96 H 07/31/20 03:25 Pulse Ox 99 07/31/20 03:25 Weight: 92.533 kg - OB Specific Contraction Intensity: Moderate to Strong Heart Rate (FHR) Variability: Absent; Amplitude Undetectable - Roberts Score Roberts Score Cervix Position: Midposition Roberts Score Consistency: Soft Roberts Score Effacement: 51-70% Roberts Score Dilation: 3-4 cm Roberts Score Infant's Station: -2 Roberts Score Total: 8 - Exam General: Alert, Oriented HEENT: PERRLA, Conjunctiva Clear, EACs Clear, EOMI, Hearing Intact, Mucosa Moist & So-Hi, Nares Patent, Normal Nasal Septum, Posterior Pharynx Clear, TMs Clear Neck: Supple, Trachea Midline Lungs: Clear to Auscultation, Normal Respiratory Effort Cardiovascular: Regular Rate, Regular Rhythm GI/Abdominal Exam: Normal Bowel Sounds, Soft, Non-Tender, No Organomegaly, No Distention, No Abnormal Bruit, No Mass, Pelvis Stable Rectal Exam: Normal Rectal Tone Back Exam: Normal Inspection, Full Range of Motion Extremities: Normal Inspection, Normal Range of Motion, Non-Tender, No Pedal Edema, Normal Capillary Refill Skin: Warm, Dry, Intact Neurological: Cranial Nerves Intact, Reflexes Equal Bilateral Psychiatric: Alert, Normal Affect, Normal Mood - Patient Data Lab Results Last 24 hrs: Laboratory Results - last 24 hr 07/30/20 07/30/20 07/30/20 Range/Units 07:49 08:30 08:30 WBC 4.95 (3.98-10.04) K/mm3 RBC 4.24 (3.98-5.22) M/mm3 Hgb 12.7 (11.2-15.7) gm/dl Hct 38.0 (34.1-44.9) % MCV 89.6 (79.4-94.8) fl MCH 30.0 (25.6-32.2) pg MCHC 33.4 (32.2-35.5) g/dl RDW Std Deviation 43.9 (36.4-46.3) fL Plt Count 201 (182-369) K/mm3 MPV 10.2 (9.4-12.3) fl Neut % (Auto) 68.1 (34.0-71.1) % Lymph % (Auto) 23.8 (19.3-51.7) % Pender % (Auto) 6.9 (4.7-12.5) % Eos % (Auto) 0.6 L (0.7-5.8) Baso % (Auto) 0.2 (0.1-1.2) % Neut # (Auto) 3.37 (1.56-6.13) K/mm3 Lymph # (Auto) 1.18 (1.18-3.74) K/mm3 Pender # (Auto) 0.34 (0.24-0.36) K/mm3 Eos # (Auto) 0.03 L (0.04-0.36) K/mm3 Baso # (Auto) 0.01 (0.01-0.08) K/mm3 RPR Non-reactive (NONREACTIVE) SARS-CoV-2 RNA (SIMEON) Negative (NEGATIVE) Blood Type Gel Antibody Screen 07/30/20 Range/Units 08:30 WBC (3.98-10.04) K/mm3 RBC (3.98-5.22) M/mm3 Hgb (11.2-15.7) gm/dl Hct (34.1-44.9) % MCV (79.4-94.8) fl MCH (25.6-32.2) pg MCHC (32.2-35.5) g/dl RDW Std Deviation (36.4-46.3) fL Plt Count (182-369) K/mm3 MPV (9.4-12.3) fl Neut % (Auto) (34.0-71.1) % Lymph % (Auto) (19.3-51.7) % Pender % (Auto) (4.7-12.5) % Eos % (Auto) (0.7-5.8) Baso % (Auto) (0.1-1.2) % Neut # (Auto) (1.56-6.13) K/mm3 Lymph # (Auto) (1.18-3.74) K/mm3 Pender # (Auto) (0.24-0.36) K/mm3 Eos # (Auto) (0.04-0.36) K/mm3 Baso # (Auto) (0.01-0.08) K/mm3 RPR (NONREACTIVE) SARS-CoV-2 RNA (SIMEON) (NEGATIVE) Blood Type B POSITIVE Gel Antibody Screen Negative Result Diagrams: 07/30/20 08:30 Problem List Initiated/Reviewed/Updated: Yes Orders Last 24hrs: Active Orders 24 hr Category Date Time Status Activity as Tolerated [RC] PER UNIT ROUTINE Care 07/30/20 19:37 Active Vital Signs [RC] 03,09,15,21 Care 07/30/20 19:37 Active Acetaminophen [TylenoL] Med 07/30/20 19:37 Active 650 mg PO Q4H PRN Benzocaine/Menthol [Dermoplast Pain Relief [place]] Med 07/30/20 19:37 Active See Dose Instructions TOP ASDIRECTED PRN Hydrocortisone Acetate [Anucort-HC] Med 07/30/20 19:37 Active 25 mg RECTAL BID PRN Ibuprofen [Motrin] Med 07/30/20 19:37 Active 600 mg PO Q6H PRN dilcia Cee [Eliezers] Med 07/30/20 19:37 Active 1 pad TOP ASDIRECTED PRN Assess Lochia [WOMSER] Per Unit Routine Oth 07/30/20 19:37 Ordered Assess Uterine Involution [WOMSER] Per Unit Routine Oth 07/30/20 19:37 Ordered Breast Pump [WOMSER] Per Unit Routine Oth 07/30/20 19:37 Ordered Heat Therapy [OM.PC] PRN Oth 07/30/20 19:37 Ordered Heat Therapy [OM.PC] PRN Oth 07/31/20 19:37 Ordered Medication Administration Instruction [OM.PC] Routine Oth 07/30/20 19:37 O rdered Perineal Care [OM.PC] Per Unit Routine Oth 07/30/20 19:37 Ordered Sitz Bath [OM.PC] Per Unit Routine Oth 07/30/20 19:37 Ordered Resuscitation Status Routine Resus Stat 07/30/20 07:46 Ordered Medication Orders Acetaminophen (Tylenol) 650 mg PO Q4H PRN PRN Reason: mild pain or fever Benzocaine/Menthol (Dermoplast Pain Relief [place]) 0 gm TOP ASDIRECTED PRN PRN Reason: Perineal Comfort Measure Last Admin: 07/30/20 20:24 Dose: 1 applic Documented by: [id number] Hydrocortisone Acetate (Anucort-Hc) 25 mg RECTAL BID PRN PRN Reason: Hemorrhoid pain Ibuprofen (Motrin) 600 mg PO Q6H PRN PRN Reason: Mild pain or fever Last Admin: 07/31/20 03:22 Dose: 600 mg Documented by: [email or web address] Dilcia Cee (Eliezers) 1 pad TOP ASDIRECTED PRN PRN Reason: Pain Last Admin: 07/30/20 20:24 Dose: 1 pad Documented by: [id number] Assessment/Plan Comment:: Term labor. TOLAC readdressed. Wishes to proceed. augment as needed. Ampicillin for GBS
[2020-07-31] MEDS: Acetaminophen 325 MG Tab PO PRN ×2 (07:28→19:22)
--- NOTE | 2020-08-01 00:51 | PCM.PNPP ---
- General Info Date of Service: 08/01/20 Functional Status: Reports: Pain Controlled, Tolerating Diet, Ambulating, Urinating - Review of Systems General: Reports: No Symptoms Pulmonary: Reports: No Symptoms Cardiovascular: Reports: No Symptoms Gastrointestinal: Reports: No Symptoms Genitourinary: Reports: No Symptoms Musculoskeletal: Reports: No Symptoms Neurological: Reports: No Symptoms - Patient Data Vital Signs - Most Recent: Last Vital Signs Temp 36.6 C 07/31/20 19:18 Pulse 78 07/31/20 19:18 Resp 18 07/31/20 19:18 BP 116/81 07/31/20 19:18 Pulse Ox 99 07/31/20 19:18 Weight - Most Recent: 92.533 kg I&O - Last 24 Hours: Intake & Output 07/31/20 07/31/20 08/01/20 14:59 22:59 06:59 Intake Total 240 Balance 240 Med Orders - Current: Current Medications Acetaminophen (Tylenol) 650 mg PO Q4H PRN PRN Reason: mild pain or fever Last Admin: 07/31/20 19:22 Dose: 650 mg Documented by: Benzocaine/Menthol (Dermoplast Pain Relief [place]) 0 gm TOP ASDIRECTED PRN PRN Reason: Perineal Comfort Measure Last Admin: 07/30/20 20:24 Dose: 1 applic Documented by: Hydrocortisone Acetate (Anucort-Hc) 25 mg RECTAL BID PRN PRN Reason: Hemorrhoid pain Ibuprofen (Motrin) 600 mg PO Q6H PRN PRN Reason: Mild pain or fever Last Admin: 07/31/20 14:41 Dose: 600 mg Documented by: Dilcia Porras) 1 pad TOP ASDIRECTED PRN PRN Reason: Pain Last Admin: 07/30/20 20:24 Dose: 1 pad Documented by: Discontinued Medications Diphenhydramine HCl (Benadryl) 25 mg IVPUSH Q6H PRN PRN Reason: pruritis Ephedrine Sulfate (Ephedrine Sulfate) 5 mg IVPUSH ASDIRECTED PRN PRN Reason: Hypotension Fentanyl (Sublimaze) 100 mcg EPIDUR Q3H PRN PRN Reason: Pain Fentanyl/Bupivacaine HCl (Fentanyl/Bupivacaine/Ns 2 Mcg-0.125% 100 Ml) 100 ml EPIDUR ASDIRECTED MARY Ampicillin Sodium 2 gm/ Sodium (Chloride) 100 mls @ 200 mls/hr IV ONETIME ONE Stop: 07/30/20 08:29 Last Admin: 07/30/20 08:48 Dose: 200 mls/hr Documented by: Ampicillin Sodium 1 gm/ Sodium (Chloride) 100 mls @ 200 mls/hr IV Q4H MARY Last Admin: 07/30/20 16:29 Dose: 200 mls/hr Documented by: Oxytocin/Lactated Ringer's (Pitocin In Lr 10 Units/1,000 Ml) 10 unit in 1,000 mls @ 100 mls/hr IV .CONTINUOUS MARY Oxytocin/Lactated Ringer's (Pitocin In Lr 10 Units/1,000 Ml) 10 unit in 1,000 mls @ 12 mls/hr IV TITRATE MARY; Protocol Last Titration: 07/30/20 13:45 Dose: 2 munits/min, 12 mls/hr Documented by: Lactated Ringer's (Ringers, Lactated) 1,000 mls @ 100 mls/hr IV ASDIRECTED MARY Last Admin: 07/30/20 15:36 Dose: 100 mls/hr Documented by: Lidocaine HCl (Xylocaine 1%) Confirm Administered Dose 50 ml .ROUTE .STK-MED ONE Stop: 07/30/20 18:48 Miscellaneous Medication (Phenylephrine 1 Mg/10 Ml-Ns) 0 mg IVPUSH ONETIME ONE Stop: 07/30/20 11:33 Last Admin: 07/30/20 22:32 Dose: Not Given Documented by: Nalbuphine HCl (Nubain) 10 mg IVPUSH Q2H PRN PRN Reason: Pain Last Admin: 07/30/20 17:16 Dose: 10 mg Documented by: Ondansetron HCl (Zofran) 4 mg IVPUSH Q4H PRN PRN Reason: Nausea/Vomiting Ondansetron HCl (Zofran) 4 mg IVPUSH ONETIME PRN PRN Reason: Nausea/Vomiting Sodium Chloride (Saline Flush) 10 ml FLUSH ASDIRECTED PRN PRN Reason: Keep Vein Open - Interaction Infant Disposition, : Anita in Room with Family Infant Interaction: Holding Infant Feeding: Breastfed ; Nursed Well Support Person: - Recovery Exam Fundal Tone: Firm Fundal Level: At Umbilicus Fundal Placement: Midline Lochia Amount: Small Lochia Color: Rubra/Red Perineum Description: Intact, Minimal Bruising/Swelling Episiotomy/Laceration: Approximated Bladder Status: Voiding Urinary Elimination: Voided - Exam General: Alert, Oriented, Cooperative GI/Abdominal Exam: Soft, Non-Tender Extremities: Normal Inspection Skin: Warm, Dry, Intact - Problem List & Annotations (1) Vaginal delivery following previous section, delivered SNOMED Code(s): 525388678 Code(s): O34.219 - MATERNAL CARE FOR UNSP TYPE SCAR FROM PREVIOUS DEL Status: Acute Current Visit: No - Problem List Review Problem List Initiated/Reviewed/Updated: Yes - Assessment Assessment:: PPD#2 - Plan Plan:: * Routine cares * Breast feeding * Discharge home today
[2020-08-01 04:22] VITALS: BP 124/85; PULSE 73
[2020-08-01] MEDS: Ibuprofen 600 MG Tab PO PRN (07:56)
== END 2020-08-01 08:55 | disposition home or self-care (01) | DRG 560 ==
LOC: JD.OB 07:31 → OBSVTOIN 18:43 → JD.OB 18:43
PROVIDERS: ADMIT Obstetrics & Gynecology; ATTEND Obstetrics & Gynecology
PROC: 10E0XZZ Delivery of Products of Conception, External Approach (ICD-10-PCS; principal; 2020-07-30)
PROC: 0KQM0ZZ Repair Perineum Muscle, Open Approach (ICD-10-PCS; 2020-07-30)
PROC: 10907ZC Drainage of Amniotic Fluid, Therapeutic from Products of Conception, Via Natural or Artificial Opening (ICD-10-PCS; 2020-07-30)
DX: O99.824 Streptococcus B carrier state complicating childbirth (principal); Z3A.41 41 weeks gestation of pregnancy; Z37.0 Single live birth; O70.1 Second degree perineal laceration during delivery; Z20.828 Contact with and (suspected) exposure to other viral communicable diseases
CPT/HCPCS: 36415; 59025; 59409; 85025; 86592; 86850; 86900; 86901; A9270-GY; J0290; J2300; J2590; J7050; J7120; U0002